=== PATIENT | female | born 1945 | race Caucasian/White ===

== ENCOUNTER 2018-12-03 12:58 | Outpatient (CLI) | payer MEDICARE, OTHER ==
[2018-12-03 14:16] LABS: MEAN CORPUSCULAR HEMOGLOBIN 30.9 pg (27.0-34.8); MEAN CORPUSCULAR HGB CONC 33.3 g/dL (32.4-35.8); MEAN CORPUSCULAR VOLUME 92.9 fL (80-100); MEAN PLATELET VOLUME 7.1 fL (7.4-10.4); PLATELET COUNT 266 x10^3/uL (130-400); RED BLOOD COUNT 4.51 x10^6/uL (3.82-5.3)
[2018-12-03 14:28] LABS: ALBUMIN 3.8 g/dL (3.4-5.0); ANION GAP 10 mmol/L (5-15); CALCIUM 9.3 mg/dL (8.5-10.1); CHLORIDE 109 mmol/L (98-107)
[2018-12-03 14:31] LABS: ALANINE AMINOTRANSFERASE 19 U/L (12-78); ALKALINE PHOSPHATASE 72 U/L (45-117); BILIRUBIN,TOTAL 0.5 mg/dL (0.2-1.0); CREATININE 1.29 mg/dL (0.55-1.02); TOTAL PROTEIN 7.1 g/dL (6.4-8.2)
[2018-12-03 14:46] LABS: BASOPHILS # (AUTO) 0.05 x10^3/uL (0-0.1); BASOPHILS % (AUTO) 0 % (0-1); EOSINOPHILS # (AUTO) 0.13 x10^3/uL (0-0.4); EOSINOPHILS % (AUTO) 1 % (1-7); LYMPHOCYTES # (AUTO) 14.71 x10^3/uL (1-3.4); LYMPHOCYTES % (AUTO) 68 % (22-44); MD SCAN; MONOCYTES # (AUTO) 0.68 x10^3/uL (0.2-0.8); MONOCYTES % (AUTO) 3 % (2-9); NEUTROPHILS # (AUTO) 5.96 x10^3/uL (1.8-6.8); NEUTROPHILS % (AUTO) 28 % (42-75)
[2018-12-15] MEDS ORDERED: GLYB-137 PO (15:49)
[2018-12-15] MEDS ORDERED: ERYT250C8 PO (15:49)
[2018-12-15] MEDS ORDERED: METO10TA82 PO (15:49)
[2018-12-15] MEDS ORDERED: CLON0.5T11 PO (15:49)
[2018-12-15] MEDS ORDERED: EZET10TA18 PO (15:49)
[2018-12-15] MEDS ORDERED: ALIR75PE INJ (15:49)
[2018-12-15] MEDS ORDERED: BUPR450T PO (15:49)
[2018-12-15] MEDS ORDERED: ASPI1CPM9 PO (15:49)
[2018-12-15] MEDS ORDERED: ERGO500017 PO (15:49)
[2018-12-15] MEDS ORDERED: LEVO137T2 PO (15:49)
[2018-12-15] MEDS ORDERED: QUET100T4 PO (15:49)
[2018-12-15] MEDS ORDERED: PARI1CAP PO (15:49)
== END 2018-12-03 23:59 | disposition home or self-care (01) ==
LOC: STAR 12:58
PROVIDERS: ATTEND Orthopaedic Surgery
DX: S42.222A 2-part displaced fracture of surgical neck of left humerus, initial encounter for closed fracture (principal); X58.XXXA Exposure to other specified factors, initial encounter; Z01.818 Encounter for other preprocedural examination; Y93.89 Activity, other specified; Y92.89 Other specified places as the place of occurrence of the external cause; Y99.8 Other external cause status
CPT/HCPCS: 36415; 80053; 85025; 87081; 93005

== ENCOUNTER 2018-12-19 05:15 | Inpatient (IN) | payer MEDICARE, OTHER ==
[~2018-12-19] VITALS: Ht 157.5 cm; Wt 74.8 kg
[~2018-12-19 05:15] MED LIST: ALIR75PE INJ; ASPI1CPM9 PO; BUPR450T PO; CLON0.5T11 PO; ERGO500017 PO; ERYT250C8 PO; EZET10TA18 PO; GLYB-137 PO; LEVO137T2 PO; METO10TA82 PO; PARI1CAP PO; QUET100T4 PO
[2018-12-19] MEDS ORDERED: CLINDAMYCIN 150 MG/ML, 6ML ONE (06:21)
[2018-12-19] MEDS ORDERED: FENTANYL PF 100 MCG/2ML ONE (06:32)
[2018-12-19] MEDS ORDERED: MIDAZOLAM 1 MG/ML, 2ML ONE (06:32)
[2018-12-19] MEDS ORDERED: LACTATED RINGERS 1,000 ML IV SCH (06:33)
[2018-12-19] MEDS ORDERED: LIDOCAINE 2%, 6 ML JEL.PF.APP MM ONE (06:34)
[2018-12-19] MEDS ORDERED: morphine SULFATE 10 MG/ML, 1ML IV PRN (07:00)
[2018-12-19] MEDS ORDERED: ACETAMINOPHEN 325 MG TABLET PO PRN ×2 (07:00→08:00)
[2018-12-19] MEDS ORDERED: OXYcodone/APAP 5/325MG TABLET PO SCH (07:00)
[2018-12-19] MEDS ORDERED: DIPHENHYDRAMINE 25 MG CAPSULE PO PRN (07:00)
[2018-12-19] MEDS ORDERED: SENNA/DOCUSATE TABLET PO PRN (07:00)
[2018-12-19] MEDS ORDERED: CEFAZOLIN PMX 1GM/50ML 50 ML IVPB SCH (07:00)
[2018-12-19] MEDS ORDERED: ERGOCALCIFEROL 50,000 UNIT CAPSULE PO SCH (07:00)
[2018-12-19] MEDS ORDERED: BISACODYL 10 MG SUPP PR PRN (07:00)
[2018-12-19] MEDS ORDERED: NEOSTIGMINE 1 MG/ML, 10ML ONE (07:01)
[2018-12-19] MEDS ORDERED: PROPOFOL 10 MG/ML, 20ML ONE (07:01)
[2018-12-19] MEDS ORDERED: DEXAMETHASONE 4 MG/ML, 1ML ONE (07:01)
[2018-12-19] MEDS ORDERED: ROCURONIUM 10 MG/ML,10ML ONE (07:01)
[2018-12-19] MEDS ORDERED: SUCCINYLCHOLINE 20 MG/ML, 10ML ONE (07:01)
[2018-12-19] MEDS ORDERED: GLYCOPYRROLATE 0.2MG/1ML, 5ML ONE (07:01)
[2018-12-19] MEDS ORDERED: EPHEDRINE 50 MG/ML, 1ML ONE ×2 (07:35→07:59)
[2018-12-19] MEDS ORDERED: LIDOCAINE-MPF 2% ,5ML ONE (07:59)
[2018-12-19] MEDS ORDERED: PHENYLEPHRINE 10 MG/ML ONE (07:59)
[2018-12-19] MEDS ORDERED: BUPIVACAINE/PF 0.5% ONE (07:59)
[2018-12-19] MEDS ORDERED: HYDROmorphone 2 MG/ML, 1ML IVPush PRN (08:00)
[2018-12-19] MEDS ORDERED: ALBUTEROL/IPRATROPIUM 2.5MG/0.5MG, 3 ML NPPB PRN (08:00)
[2018-12-19] MEDS ORDERED: hydrALAzine 20 MG/ML, 1ML IV PRN (08:00)
[2018-12-19] MEDS ORDERED: FENTANYL PF 100 MCG/2ML IV PRN (08:00)
[2018-12-19] MEDS ORDERED: MIDAZOLAM 1 MG/ML, 2ML IV PRN (08:00)
[2018-12-19] MEDS ORDERED: ONDANSETRON 2MG/ML, 2ML IV PRN (08:00)
[2018-12-19] MEDS ORDERED: OXYcodone 5 MG/5 ML ORAL.SOL UDC PO PRN (08:00)
[2018-12-19] MEDS: PARICALCITOL 1 MCG CAPSULE PO SCH (09:00)
[2018-12-19] MEDS: DOCUSATE 100 MG CAPSULE PO SCH ×2 (09:00→21:30)
[2018-12-19] MEDS ORDERED: ICN METOCLOPRAMIDE 0.5 MG/ML ORAL PO SCH (09:00)
[2018-12-19] MEDS: ERYTHROMYCIN BASE 250 MG TABLET PO SCH (09:00)
[2018-12-19] MEDS: ASPIRIN/DIPYRIDAMOLE 25MG/200MG CAPSULE PO SCH ×2 (09:00→21:00)
[2018-12-19] MEDS: EZETIMIBE 10 MG TABLET PO SCH (09:00)
[2018-12-19] MEDS: OXYcodone/APAP 5/325MG TABLET PO SCH ×3 (11:06→23:02)
[2018-12-19] MEDS: POTASSIUM CHLORIDE 20 MEQ in SODIUM CHLORIDE 0.45% 1,000 ML IV SCH ×2 (11:36→23:01)
[2018-12-19 13:59] VITALS: BP 100/69
[2018-12-19] MEDS: CEFAZOLIN PMX 1GM/50ML 50 ML IVPB SCH ×2 (15:03→23:01)
[2018-12-19 20:54] VITALS: BP 115/73
[2018-12-19] MEDS ORDERED: QUETIAPINE 100MG TABLET PO SCH (21:00)
[2018-12-19] MEDS: METOCLOPRAMIDE 10MG TABLET PO SCH (21:30)
[2018-12-20 00:43] VITALS: BP 110/74
[2018-12-20] MEDS: OXYcodone/APAP 5/325MG TABLET PO SCH ×2 (05:13→11:35)
[2018-12-20] MEDS ORDERED: LEVOTHYROXINE 137 MCG TABLET PO SCH (06:00)
[2018-12-20] MEDS: CEFAZOLIN PMX 1GM/50ML 50 ML IVPB SCH (06:37)
[2018-12-20 08:14] VITALS: BP 104/66
[2018-12-20] MEDS: ERYTHROMYCIN BASE 250 MG TABLET PO SCH (09:24)
[2018-12-20] MEDS: METOCLOPRAMIDE 10MG TABLET PO SCH (09:24)
[2018-12-20] MEDS: EZETIMIBE 10 MG TABLET PO SCH (09:24)
[2018-12-20] MEDS: DOCUSATE 100 MG CAPSULE PO SCH (09:24)
[2018-12-20] MEDS: PARICALCITOL 1 MCG CAPSULE PO SCH (09:25)
[2018-12-20] MEDS: POTASSIUM CHLORIDE 20 MEQ in SODIUM CHLORIDE 0.45% 1,000 ML IV SCH (11:28)
[2018-12-20] MEDS: ASPIRIN/DIPYRIDAMOLE 25MG/200MG CAPSULE PO SCH (11:35)
== END 2018-12-20 12:23 | disposition home or self-care (01) | DRG 483 ==
LOC: ORIP 05:15 → 4NOR 10:22 → DCLOUNGE 12-20 12:06
PROVIDERS: ADMIT Orthopaedic Surgery; ATTEND Orthopaedic Surgery
PROC: 3E0T3BZ Introduction of Anesthetic Agent into Peripheral Nerves and Plexi, Percutaneous Approach (ICD-10-PCS; 2018-12-19)
PROC: 0PSG04Z Reposition Left Humeral Shaft with Internal Fixation Device, Open Approach (ICD-10-PCS; 2018-12-19)
PROC: 0PUD07Z Supplement Left Humeral Head with Autologous Tissue Substitute, Open Approach (ICD-10-PCS; 2018-12-19)
PROC: 0JDH0ZZ Extraction of Left Lower Arm Subcutaneous Tissue and Fascia, Open Approach (ICD-10-PCS; 2018-12-19)
PROC: 0RRK00Z Replacement of Left Shoulder Joint with Reverse Ball and Socket Synthetic Substitute, Open Approach (ICD-10-PCS; principal; 2018-12-19 07:00)
DX: S42.242A 4-part fracture of surgical neck of left humerus, initial encounter for closed fracture (principal); W18.39XA Other fall on same level, initial encounter; L89.020 Pressure ulcer of left elbow, unstageable; E78.5 Hyperlipidemia, unspecified; E11.9 Type 2 diabetes mellitus without complications; Z86.73 Personal history of transient ischemic attack (TIA), and cerebral infarction without residual deficits; Z82.61 Family history of arthritis; Y93.89 Activity, other specified; Y92.89 Other specified places as the place of occurrence of the external cause; Y99.8 Other external cause status; Z82.49 Family history of ischemic heart disease and other diseases of the circulatory system; I25.2 Old myocardial infarction; Z85.6 Personal history of leukemia
CPT/HCPCS: 82962; C1713; C1776; G0378; J0690; J1100; J2250; J2704; J2710; J3010; J3480; J3490; J0330; J2370; J7120